=== PATIENT | female | born 1995 | race Caucasian/White ===

== ENCOUNTER 2016-10-02 19:58 | Emergency (ER) | payer BC ==
[2016-10-02 20:14] VITALS: BP 121/64
--- NOTE | 2016-10-02 21:17 | RAD ---
Indication: Left foot pain especially at the fifth metatarsophalangeal joint. 3 views of left foot demonstrates no fracture. No other bone or joint abnormality is noted. IMPRESSION: No fracture of the left foot is noted.
--- NOTE | 2016-10-02 21:28 | UC ---
Lower Extremity/Ankle HPI - HPI Summary HPI Summary: pain on bottom of foot for 3 weeks. Causing her to limp. No injury. Didn't step on anything. Not a runner. Progressively enlarging lump that is very tender to touch and limits movement of 4th and 5th toes. Never had similar problem. - History of Current Complaint Chief Complaint: UCLowerExtremity Stated Complaint: LEFT FOOT Time Seen by Provider: 10/02/16 20:32 Hx Obtained From: Patient Hx Last Menstrual Period: 10/01/16 Onset/Duration: Gradual Onset, Lasting Weeks - 3 Severity Initially: Mild Severity Currently: Moderate Aggravating Factor(s): Standing, Ambulation Alleviating Factor(s): Rest, Elevation, Ice Able to Bear Weight: Yes - but limping on side of foot - Risk Factors Gout Risk Factors: Negative DVT Risk Factors: Negative Septic Arthritis Risk Factor: Negative - Allergies/Home Medications Allergies/Adverse Reactions: Allergies Allergy/AdvReac Type Severity Reaction Status Date / Time No Known Allergies Allergy Verified 10/02/16 20:14 PMH/Surg Hx/FS Hx/Imm Hx Previously Healthy: Yes Endocrine History Of: Denies: Diabetes, Thyroid Disease Cardiovascular History Of: Denies: Cardiac Disorders, Hypertension Respiratory History Of: Denies: COPD, Asthma GI/ History Of: Denies: Ulcer - Surgical History Surgical History: None - Family History Known Family History: Positive: Hypertension - Social History 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, 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 [employer] Lives: With Family Alcohol Use: None Substance Use Type: None Smoking Status (MU): Never Smoked Tobacco - Immunization History Most Recent Influenza Vaccination: none Most Recent Tetanus Shot: unknown Vaccination Up to Date: No Review of Systems Constitutional: Negative Skin: Negative Eyes: Negative ENT: Negative Respiratory: Negative Cardiovascular: Negative Gastrointestinal: Negative Genitourinary: Negative Motor: Negative Neurovascular: Negative Musculoskeletal: Other: - left foot lump Neurological: Negative Psychological: Negative All Other Systems Reviewed And Are Negative: Yes Physical Exam Triage Information Reviewed: Yes Appearance: Well-Appearing, No Pain Distress, Well-Nourished, Thin Vital Signs: Initial Vital Signs Temp 98.6 F 10/02/16 20:06 Pulse 84 10/02/16 20:06 Resp 15 10/02/16 20:06 BP 121/64 10/02/16 20:06 Pulse Ox 100 10/02/16 20:06 Vital Signs Reviewed: Yes Eye Exam: Normal ENT Exam: Normal Neck exam: Normal Respiratory Exam: Normal Cardiovascular Exam: Normal Musculoskeletal Exam: Other - espleft foot with visible and palpable soft, fleshy mass on sole of foot along mid-length of 5th metatarsal. Quite tender. No redness on surface, no increased warmth, no break in skin. Approx 2.5 cm long and 1.5 cm wide. Movement of 4th and 5th toes, erick extension, is very painful. Diagnostics - Laboratory Diagnostic Studies Completed/Ordered: foot xray neg Lower Extremity Course/Dx - Course Course Of Treatment: I think this is a plantar fibroma, but I am not certain. I strongly recommended follow-up with a [facility]. She says her mother has one in [place] and she will call tomorrow. Also given numbers for local Podiatrists - Differential Dx/Diagnosis Differential Diagnosis/HQI/PQRI: Cellulitis, Fracture (Closed), Infection, Sprain, Tendonitis Provider Diagnoses: plantar fibroma Discharge - Discharge Plan Condition: Stable Disposition: HOME Prescriptions: Meloxicam [Mobic] 15 mg PO DAILY PRN #30 tab PRN Reason: Pain Forms: *Work Release Referrals: Leticia Mcqueen MD [Primary Care Provider] - Additional Instructions: I think your condition may be a "plantar fibroma", which is a non-cancerous growth of tissue in the arch of the foot. It would be best to be evaluated by a [employer] ([facility]) who could best treat this condition. [facility] your mother's [facility] in [place], or call one of the local [place] [facility].
== END 2016-10-02 21:27 | disposition home or self-care (01) ==
LOC: UCCORT 19:58
DX: D23.72 Other benign neoplasm of skin of left lower limb, including hip (principal)
CPT/HCPCS: 99212; G0463

== ENCOUNTER 2017-12-01 11:21 | Emergency (ER) | payer BC, OTHER ==
[2017-12-01 11:48] VITALS: BP 115/68
--- NOTE | 2017-12-01 12:05 | UC ---
UC General HPI - HPI Summary HPI Summary: pt c/o sore throat, R ear pain, headache and sense of fever for 3 weeks. admits fatigue but works and goes to school FT. no hx MONO - History of Current Complaint Chief Complaint: UCGeneralIllness Stated Complaint: SORE THROAT,HEADACHE,EARS Time Seen by Provider: 12/01/17 11:59 Hx Obtained From: Patient Hx Last Menstrual Period: 11/26/17 Onset/Duration: Gradual Onset Timing: Constant Pain Intensity: 7 Aggravating: nothing Alleviating: nothing Associated Signs & Symptoms: Positive: Fever, Headache - Allergy/Home Medications Allergies/Adverse Reactions: Allergies Allergy/AdvReac Type Severity Reaction Status Date / Time No Known Allergies Allergy Verified 10/02/16 20:14 Home Medications: Home Medications Levonorgestrel (Iud) [Mirena IUD] 1 each .ROUTE DAILY 12/01/17 [History Confirmed 12/01/17] PMH/Surg Hx/FS Hx/Imm Hx Previously Healthy: Yes - Surgical History Surgical History: Yes Surgery Procedure, Year, and Place: LEFT FOOT SURGERY X2. 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 Lives: Alone Alcohol Use: Occasionally Substance Use Type: None Smoking Status (MU): Never Smoked Tobacco Have You Smoked in the Last Year: No - Immunization History Most Recent Influenza Vaccination: none Most Recent Tetanus Shot: unknown Vaccination Up to Date: No Review of Systems Constitutional: Fever, Fatigue ENT: Sore Throat, Ear Ache Neurological: Headache Is Patient Immunocompromised?: No All Other Systems Reviewed And Are Negative: Yes Physical Exam Triage Information Reviewed: Yes Appearance: Well-Appearing Vital Signs: Initial Vital Signs Temp 99.1 F 12/01/17 11:41 Pulse 80 12/01/17 11:41 Resp 16 12/01/17 11:41 BP 115/68 12/01/17 11:41 Pulse Ox 99 12/01/17 11:41 Vital Signs Reviewed: Yes Eyes: Positive: Conjunctiva Clear ENT: Positive: Pharyngeal erythema, TMs normal. Negative: Nasal congestion, Nasal drainage Neck: Positive: Supple, Nontender, No Lymphadenopathy Respiratory: Positive: Lungs clear, Normal breath sounds Cardiovascular: Positive: RRR, No Murmur Abdomen Description: Positive: Nontender, No Organomegaly, Soft. Negative: Distended, Guarding Bowel Sounds: Positive: Present Musculoskeletal: Positive: ROM Intact Neurological: Positive: Alert Psychological: Positive: Age Appropriate Behavior Skin Exam: Normal Diagnostics - Laboratory Diagnostic Studies Completed/Ordered: RAPID STREP=NEG, CBC WITH DIFF AND MONO ARE PENDING Course/Dx - Course Course Of Treatment: RAPID STREP=NEG, CBC WITH DIFF AND MONO PENDING GIVEN DURATION OF ST. PT NON TOXIC AND TX SUPPORTIVE AT THIS TIME. - Differential Dx - Multi-Symptom Provider Diagnoses: SORE THROAT, OTALGIA Discharge - Sign-Out/Discharge Documenting (check all that apply): Discharge/Admit/Transfer - Discharge Plan Condition: Stable Disposition: HOME Patient Education Materials: Pharyngitis (ED), Earache (ED) Forms: *Work Release, *School Release - Billing Disposition and Condition Condition: STABLE Disposition: HOME
[2017-12-01 18:26] LABS: ABS Basophils 0 10^3/ul (0-0.2); ABS Eosinophils 0.1 10^3/ul (0-0.6); ABS Lymphocytes 0.7 10^3/ul (1.0-4.8); ABS Monocytes 0.3 10^3/ul (0-0.8); ABS Neutrophils 2.5 10^3/ul (1.5-7.7); ABS Nucleated RBC 0 10^3/ul; Eosinophil % 1.7 % (0-6); Hematocrit 37 % (35-47); Hemoglobin 12.6 g/dl (12.0-16.0); Lymphocyte % 19.2 % (25-47); Mean Corpuscular HGB Conc 34 g/dl (31-36); Mean Corpuscular Hemoglobin 30 pg (27-31); Mean Corpuscular Volume 89 fL (80-97); Mean Platelet Volume 8.9 um3 (7.4-10.4); Nucleated Red Blood Cells % 0; Platelet Count 210 10^3/ul (150-450); Red Blood Count 4.18 10^6/ul (4.0-5.4); Red Cell Distribution Width 13 % (10.5-15); White Blood Count 3.6 10^3/ul (3.5-10.8)
== END 2017-12-01 12:48 | disposition home or self-care (01) ==
LOC: UCCORT 11:21
DX: J02.9 Acute pharyngitis, unspecified (principal); H92.01 Otalgia, right ear
CPT/HCPCS: 36415; 85025; 86308; 87651; 99211; G0463

== ENCOUNTER 2018-03-29 20:54 | Emergency (ER) | payer OTHER ==
[2018-03-29 21:07] VITALS: BP 110/72
--- NOTE | 2018-03-29 21:20 | UC ---
Ear Complaint HPI - HPI Summary HPI Summary: C/O right ear pain x 4 days. Worsening. H/O multiple OM. Sore throat as well. - History of Current Complaint Chief Complaint: UCEar Stated Complaint: RIGHT EAR PAIN Time Seen by Provider: 03/29/18 21:13 Hx Obtained From: Patient Hx Last Menstrual Period: IUD ?: No Onset/Duration: Gradual Onset, Lasting Days - 4 Severity Initially: Mild Severity Currently: Moderate Pain Intensity: 7 Aggravating Factors: Nothing Alleviating Factors: Nothing Associated Signs/Symptoms: Positive: Hearing Loss, URI Symptoms Related History: Seasonal Allergies - Allergies/Home Medications Allergies/Adverse Reactions: Allergies Allergy/AdvReac Type Severity Reaction Status Date / Time No Known Allergies Allergy Verified 10/02/16 20:14 PMH/Surg Hx/FS Hx/Imm Hx Previously Healthy: Yes - Surgical History Surgical History: Yes Surgery Procedure, Year, and Place: LEFT FOOT SURGERY X2. WISDOM TEETH EXTRACTION. 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 Lives: Alone Alcohol Use: Occasionally Substance Use Type: None Smoking Status (MU): Never Smoked Tobacco Have You Smoked in the Last Year: No - Immunization History Most Recent Influenza Vaccination: none Most Recent Tetanus Shot: unknown Vaccination Up to Date: No Review of Systems ENT: Ear Ache Is Patient Immunocompromised?: No All Other Systems Reviewed And Are Negative: Yes Physical Exam Triage Information Reviewed: Yes Appearance: Well-Appearing, No Pain Distress, Well-Nourished Vital Signs: Initial Vital Signs Temp 99.4 F 03/29/18 21:00 Pulse 97 03/29/18 21:00 Resp 16 03/29/18 21:00 BP 110/72 03/29/18 21:00 Pulse Ox 99 03/29/18 21:00 Vital Signs Reviewed: Yes Eyes: Positive: Conjunctiva Clear ENT: Positive: Nasal congestion - with allergic changes. Negative: TMs normal - with scarring Neck exam: Normal Respiratory Exam: Normal Cardiovascular Exam: Normal Cardiovascular: Positive: Murmur:Sys:Grade _?_/ - 2/6 vibratory murmur Musculoskeletal Exam: Normal Neurological Exam: Normal Psychological Exam: Normal Skin Exam: Normal Ear Complaint Course/Dx - Differential Dx/Diagnosis Differential Diagnosis/HQI/PQRI: Cerumen Impaction, Otitis Externa, Otitis Media , URI Provider Diagnoses: Eustachian tube dysfunction. Allergic rhinitis Discharge - Sign-Out/Discharge Documenting (check all that apply): Patient Departure - Discharge Plan Condition: Stable Disposition: HOME Prescriptions: Montelukast Sodium TAB* [Singulair 10 MG TAB*] 10 mg PO BEDTIME #30 tab Patient Education Materials: Allergic Rhinitis (ED), Montelukast (By mouth) Referrals: Leticia Mcqueen MD [Primary Care Provider] - Additional Instructions: NEILMED SINUS RINSE: CHECK OUT AT [employer] Saline nasal wash helps with mucous, allergies and congestion. It can be used up to twice a day or only as needed. Use lukewarm tap water. It does not have to be sterilized or distilled water. Do 1/3 on each side and snort out of both nostrils. Repeat the process with 1/6 of the bottle on each side with snorting in between to finish the solution in the bottle If you still can't "pop" your ears, consider OTC nasal steroid spray. - Billing Disposition and Condition Condition: STABLE Disposition: Home
== END 2018-03-29 21:38 | disposition home or self-care (01) ==
LOC: UCCORT 20:54
DX: H69.81 Other specified disorders of Eustachian tube, right ear (principal); J30.9 Allergic rhinitis, unspecified
CPT/HCPCS: 99212; G0463

== ENCOUNTER 2018-06-14 12:53 | Emergency (ER) | payer OTHER ==
[2018-06-14 13:25] VITALS: BP 117/66
--- NOTE | 2018-06-14 13:44 | UC ---
Complaint Female HPI - HPI Summary HPI Summary: Pt c/o urinary frequency, urgency and dysuria X 1 day. Pt took OTC azo this morning. - History Of Current Complaint Chief Complaint: UCGU Stated Complaint: URINARY Time Seen by Provider: 06/14/18 13:36 Hx Obtained From: Patient Hx Last Menstrual Period: IUD ?: No Onset/Duration: Sudden Onset, Lasting Hours Timing: Constant Severity Initially: Mild Severity Currently: Mild Pain Intensity: 0 Character: Dull, Burning Aggravating Factor(s): Urination Associated Signs And Symptoms: Positive: Negative - Risk Factors Ectopic Risk Factor: Negative Ovarian Torsion Risk Factor: Reproductive Age - Allergies/Home Medications Allergies/Adverse Reactions: Allergies Allergy/AdvReac Type Severity Reaction Status Date / Time No Known Allergies Allergy Verified 06/14/18 13:25 PMH/Surg Hx/FS Hx/Imm Hx Previously Healthy: Yes - Surgical History Surgical History: Yes Surgery Procedure, Year, and Place: LEFT FOOT SURGERY X2. WISDOM TEETH EXTRACTION. TUBES IN EARS X2 - Family History Known Family History: Positive: Hypertension, Diabetes - Social History Occupation: Student Lives: With Family Alcohol Use: Occasionally Substance Use Type: None Smoking Status (MU): Never Smoked Tobacco Have You Smoked in the Last Year: No - Immunization History Most Recent Influenza Vaccination: none Most Recent Tetanus Shot: unknown Vaccination Up to Date: No Review of Systems Constitutional: Negative Skin: Negative Eyes: Negative ENT: Negative Respiratory: Negative Cardiovascular: Negative Gastrointestinal: Negative Genitourinary: Dysuria, Frequency, Urgency Motor: Negative Neurovascular: Negative Musculoskeletal: Negative Neurological: Negative Psychological: Negative Is Patient Immunocompromised?: No All Other Systems Reviewed And Are Negative: Yes Physical Exam Triage Information Reviewed: Yes Appearance: Well-Appearing Vital Signs: Initial Vital Signs Temp 98.0 F 06/14/18 13:22 Pulse 70 06/14/18 13:22 Resp 18 06/14/18 13:22 BP 117/66 06/14/18 13:22 Pulse Ox 98 06/14/18 13:22 Vital Signs Reviewed: Yes Eye Exam: Normal ENT: Positive: Hearing grossly normal Dental Exam: Normal Neck exam: Normal Respiratory Exam: Normal Respiratory: Positive: Normal breath sounds Cardiovascular Exam: Normal Abdomen Description: Positive: Nontender Musculoskeletal Exam: Normal Neurological Exam: Normal Psychological Exam: Normal Skin Exam: Normal Complaint Female Dx - Differential Dx/Diagnosis Differential Diagnosis/HQI/PQRI: Urinary Tract Infection Provider Diagnoses: dysuria Discharge - Sign-Out/Discharge Documenting (check all that apply): Patient Departure All imaging exams completed and their final reports reviewed: No Studies - Discharge Plan Condition: Stable Disposition: HOME Prescriptions: Nitrofurantoin Monohyd/M-Cryst [Macrobid 100 mg Capsule] 100 mg PO Q12H #14 cap Patient Education Materials: Dysuria (ED) Referrals: Leticia Mcqueen MD [Primary Care Provider] - If Needed - Billing Disposition and Condition Condition: STABLE Disposition: Home
== END 2018-06-14 14:00 | disposition home or self-care (01) ==
LOC: UCCORT 12:53
DX: R30.0 Dysuria (principal); R35.0 Frequency of micturition; R39.15 Urgency of urination
CPT/HCPCS: 87086; 99211; G0463